=== PATIENT | female | born 1945 | race Caucasian/White ===

== ENCOUNTER 2024-04-17 05:25 | Inpatient (IN) ==
--- NOTE | 2024-03-19 12:34 | PAT Medication Instructions ---
Medication Instructions Date of Service March 19, 2024 Home Medications Medication Instructions Recorded ascorbic acid (vitamin C) 500 mg 500 mg PO BID #60 tabs 03/22/22 tablet ferrous sulfate 325 mg (65 mg 325 mg PO BID #60 tabs 03/22/22 iron) tablet multivitamin 1 tab PO DAILY #30 tabs 03/22/22 omega-3 fatty acids 1,250 mg 1,250 mg PO BID #60 caps 03/22/22 capsule CPAP Supplies #1 ea 06/30/23 CPAP Supplies #1 ea 06/30/23 diclofenac sodium 1 % topical gel 2 g topical QID PRN arm pain #100 06/30/23 grams epinephrine 0.3 mg/0.3 mL 0.3 mg (0.3 mL) IM Q10M PRN 11/15/23 injection, auto-injector (EpiPen anaphylaxis #2 ea 2-Steven) hydrochlorothiazide 12.5 mg capsule 12.5 mg PO QAM #90 caps 11/15/23 oxycodone 5 mg tablet 5 mg PO BID PRN pain #30 tabs 12/01/23 cyclobenzaprine 10 mg tablet 10 mg PO HS PRN muscle spasm #30 03/12/24 tabs ascorbic acid (vitamin C) 500 mg tablet 500 mg PO BID ferrous sulfate 325 mg (65 mg iron) tablet 325 mg PO BID multivitamin 1 tab PO DAILY omega-3 fatty acids 1,250 mg capsule 1,250 mg PO BID amoxicillin 500 mg capsule 2,000 mg PO UD PRN dental procedures acetaminophen 650 mg tablet,extended release (Tylenol Arthritis Pain) 650 mg PO TID diclofenac sodium 1 % topical gel 2 g topical QID PRN arm pain magnesium oxide 400 mg PO QPM epinephrine 0.3 mg/0.3 mL injection, auto-injector (EpiPen 2-Steven) 0.3 mg (0.3 mL) IM Q10M PRN anaphylaxis hydrochlorothiazide 12.5 mg capsule 12.5 mg PO QAM oxycodone 5 mg tablet 5 mg PO BID PRN pain propylene glycol (PF) 0.6 % eye drops (Systane Complete PF) 1 drp ophthalmic (eye) QID sodium chloride 2 % eye drops (Sanchez 128) 2 drp ophthalmic (eye) BID cyclobenzaprine 10 mg tablet 10 mg PO HS PRN muscle spasm amlodipine 10 mg tablet 10 mg PO QAM celecoxib 200 mg capsule (Celebrex) 200 mg PO QAM estradiol 0.01% (0.1 mg/gram) vaginal cream 1 g vaginal Q3D fluticasone propionate 50 mcg/actuation nasal spray,suspension 2 spray intranasal HS gabapentin 100 mg capsule 100 mg PO HS gabapentin 300 mg capsule 300 - 600 mg PO UD mirabegron 50 mg tablet,extended release 24 hr 50 mg PO QAM omeprazole 40 mg capsule,delayed release 40 mg PO QAM pramipexole 0.25 mg tablet 0.25 mg PO HS PRN RLS valsartan 160 mg tablet 160 mg PO QAM Continue as directed amoxicillin 500 mg capsule 2,000 mg PO UD PRN dental procedures (if needed) epinephrine 0.3 mg/0.3 mL injection, auto-injector (EpiPen 2-Steven) 0.3 mg (0.3 mL) IM Q10M PRN anaphylaxis (if needed) ASK your surgeon for instructions celecoxib 200 mg capsule (Celebrex) 200 mg PO QAM ASK your prescriber and surgeon estradiol 0.01% (0.1 mg/gram) vaginal cream 1 g vaginal Q3D STOP taking 2 weeks before surgery omega-3 fatty acids 1,250 mg capsule 1,250 mg PO BID STOP taking 24 hours before surgery diclofenac sodium 1 % topical gel 2 g topical QID PRN arm pain DO NOT take the morning of surgery ascorbic acid (vitamin C) 500 mg tablet 500 mg PO BID ferrous sulfate 325 mg (65 mg iron) tablet 325 mg PO BID multivitamin 1 tab PO DAILY hydrochlorothiazide 12.5 mg capsule 12.5 mg PO QAM mirabegron 50 mg tablet,extended release 24 hr 50 mg PO QAM valsartan 160 mg tablet 160 mg PO QAM Take morning of surgery With a small sip of water, OTHERWISE NOTHING TO EAT OR DRINK AFTER MIDNIGHT: acetaminophen 650 mg tablet,extended release (Tylenol Arthritis Pain) 650 mg PO TID oxycodone 5 mg tablet 5 mg PO BID PRN pain (if needed) propylene glycol (PF) 0.6 % eye drops (Systane Complete PF) 1 drp ophthalmic (eye) QID sodium chloride 2 % eye drops (Sanchez 128) 2 drp ophthalmic (eye) BID amlodipine 10 mg tablet 10 mg PO QAM gabapentin 300 mg capsule 300 - 600 mg PO UD omeprazole 40 mg capsule,delayed release 40 mg PO QAM Take evening before surgery ascorbic acid (vitamin C) 500 mg tablet 500 mg PO BID ferrous sulfate 325 mg (65 mg iron) tablet 325 mg PO BID acetaminophen 650 mg tablet,extended release (Tylenol Arthritis Pain) 650 mg PO TID magnesium oxide 400 mg PO QPM oxycodone 5 mg tablet 5 mg PO BID PRN pain (if needed) propylene glycol (PF) 0.6 % eye drops (Systane Complete PF) 1 drp ophthalmic (eye) QID sodium chloride 2 % eye drops (Sanchez 128) 2 drp ophthalmic (eye) BID cyclobenzaprine 10 mg tablet 10 mg PO HS PRN muscle spasm (if needed) fluticasone propionate 50 mcg/actuation nasal spray,suspension 2 spray intranasal HS gabapentin 100 mg capsule 100 mg PO HS gabapentin 300 mg capsule 300 - 600 mg PO UD pramipexole 0.25 mg tablet 0.25 mg PO HS PRN RLS (if needed) Other Notes If you have any questions please call us at [phone] or [phone] or [phone] or [phone]
--- NOTE | 2024-03-28 12:42 | Anesthesiology Consultation ---
Date of Service March 28, 2024 Assessment & Plan (1) Encounter for pre-operative examination: Infectious disease screening: Per assessment on 03/28/24: No known recent infectious disease contacts or current infectious disease symptoms. Chart Review Chart Review: Acceptable Risk for Surgery and Patient seen in Pre Admission Testing Teaching & Discussion Pre-Anesthesia Teaching/Discussion Notes: Instructed NPO after midnight before surgery,except medications with 15 cc of water. Medication instructions provided according to the PAT guidelines. History Surgery Operation Date: 04/17/24 07:15 Proposed Procedures p L4-L5 Lateral Lumbar Interbody Fusion with Interbody Cage and Posterior Instrumentation, L3-L4, L4-L5 Posterior Laminectomy - Ruben Platt MD Height/Weight Height: 5 ft 3.5 in Weight: 91.6 kg Allergies Allergy/AdvReac Type Severity Reaction Status Date / Time bee venom protein (honey bee) Allergy Rash, Verified 03/27/24 08:52 swelling quinine AdvReac Severe "Couldn't Verified 03/27/24 08:52 move" quinapril [From Accupril] AdvReac Intermediate Cough Verified 03/26/24 15:17 sulfamethoxazole AdvReac Mild Hives Verified 03/26/24 15:17 [From Bactrim] trimethoprim [From Bactrim] AdvReac Mild Hives Verified 03/26/24 15:17 Medications Home Medications Medication Instructions Recorded Confirmed Last Taken ascorbic acid (vitamin C) 500 mg 500 mg PO BID #60 tabs 03/22/22 03/26/24 Unknown tablet ferrous sulfate 325 mg (65 mg 325 mg PO BID #60 tabs 03/22/22 03/26/24 Unknown iron) tablet multivitamin 1 tab PO DAILY #30 tabs 03/22/22 03/26/24 Unknown omega-3 fatty acids 1,250 mg 1,250 mg PO BID #60 caps 03/22/22 03/26/24 Unknown capsule amoxicillin 500 mg capsule 2,000 mg PO UD PRN dental 07/27/22 03/26/24 Unknown procedures acetaminophen 650 mg 650 mg PO TID 04/20/23 03/26/24 Unknown tablet,extended release (Tylenol Arthritis Pain) CPAP Supplies #1 ea 06/30/23 03/26/24 Unknown CPAP Supplies #1 ea 06/30/23 03/26/24 Unknown diclofenac sodium 1 % topical gel 2 g topical QID PRN arm pain #100 06/30/23 03/26/24 Unknown grams magnesium oxide 500 mg PO QPM 08/15/23 03/28/24 Unknown epinephrine 0.3 mg/0.3 mL 0.3 mg (0.3 mL) IM Q10M PRN 11/15/23 03/26/24 Unknown injection, auto-injector (EpiPen anaphylaxis #2 ea 2-Steven) hydrochlorothiazide 12.5 mg capsule 12.5 mg PO QAM #90 caps 11/15/23 03/26/24 Unknown oxycodone 5 mg tablet 5 mg PO BID PRN pain #30 tabs 12/01/23 03/26/24 Unknown propylene glycol (PF) 0.6 % eye 1 drp ophthalmic (eye) QID 02/09/24 03/26/24 Unknown drops (Systane Complete PF) sodium chloride 2 % eye drops 2 drp ophthalmic (eye) BID 02/09/24 03/26/24 Unknown (Sanchez 128) cyclobenzaprine 10 mg tablet 10 mg PO HS PRN muscle spasm #30 03/12/24 03/26/24 Unknown tabs amlodipine 10 mg tablet 10 mg PO QAM 03/15/24 03/26/24 Unknown celecoxib 200 mg capsule (Celebrex) 200 mg PO QAM 03/15/24 03/26/24 Unknown estradiol 0.01% (0.1 mg/gram) 1 g vaginal Q3D 03/15/24 03/26/24 Unknown vaginal cream fluticasone propionate 50 2 spray intranasal HS 03/15/24 03/26/24 Unknown mcg/actuation nasal spray,suspension gabapentin 100 mg capsule 100 mg PO HS 03/15/24 03/26/24 Unknown gabapentin 300 mg capsule 300 - 600 mg PO UD 03/15/24 03/26/24 Unknown mirabegron 50 mg tablet,extended 50 mg PO QAM 03/15/24 03/26/24 Unknown release 24 hr omeprazole 40 mg capsule,delayed 40 mg PO QAM 03/15/24 03/26/24 Unknown release pramipexole 0.25 mg tablet 0.25 mg PO HS PRN RLS 03/15/24 03/26/24 Unknown valsartan 160 mg tablet 160 mg PO QAM 03/15/24 03/26/24 Unknown ClearLax 1 dose PO DAILY 10/09/24 10/09/24 Unknown Past Medical History Medical History Anemia Cardiac murmur Echo 07/2023: Mild aortic sclerosis. Mild to moderate MR. Mild [place]. Chronic knee pain Chronic left shoulder pain Disc degeneration, lumbar Fuchs' corneal dystrophy of both eyes GERD (gastroesophageal reflux disease) Hx of migraines w/aura Hypertension Lymph edema Wears compression stockings and has compression pump Obesity MICHELE (obstructive sleep apnea) CPAP Peripheral neuropathy Raynaud disease RLS (restless legs syndrome) Scoliosis of lumbar region due to degenerative disease of spine in adult Urinary incontinence Exercise / Class Metabolic Activity III < 4 Walking/Shop/Light housework Past Family History Family History Father Myocardial infarction Hypertension Malignant melanoma of right eye Brother Hypertension Pancreatic cancer Bladder cancer Emphysema, unspecified Sister Lung cancer Mother Brain tumor (benign) Brother Lung cancer Denies family history of Ovarian cancer Prostate cancer Diabetes Breast cancer Colorectal cancer Past Surgical History Surgical History History of dilatation and curettage x3 History of esophagogastroduodenoscopy (EGD) History of thyroid surgery 1967, growth/nodule removed from thyroid History of total left knee replacement Hx of bilateral cataract extraction Hx of colonoscopy Hx of tonsillectomy Hx of umbilical hernia repair S/P trigger finger release Past Anesthesia History No Hx of Anesthesia Complications and No Family Hx of Anesthesia Complications History of PONV No Hx of PONV and No Hx of Motion Sickness Social History Smoking Status: Never smoker Do You Dip or Chew Tobacco: No Hx Alcohol Use: Yes alcohol intake frequency: holidays/special occasions only Hx Substance Use: No substance use type: does not use Review of Systems Patient denies chest pain, shortness of breath, fever, chills, cough, wheezing, palpitations. Physical Exam Vital Signs BP 129/72 P 86 TEMP 98.2 SP02 99%RA RESP 18 Physical Full cervical extension range of motion. Full TMJ range of motion. TMD 3 finger breaths Mallampati Score II Dentition: intact, several caps/crowns, + inlays Lungs: clear throughout to auscultation Cardiac: regular rate and rhythm, II/ systolic murmur Spine: normal Carotid arteries: negative bruit Extremities: no LE edema Short neck Lab Results Anesthesia Preop Results Results Anesthesia Widget: WBC 5.96 K/ul (4.8-10.8) 03/28/24 Hgb 11.4 g/dl (12.0-16.0) L 03/28/24 Hct 36.3 % (37.0-47.0) L 03/28/24 Plt 251 K/uL (130-400) 03/28/24 Na 138 mmol/L (136-145) 03/28/24 K 3.9 mmol/L (3.5-5.1) 03/28/24 Cl 102 mmol/L (98-107) 03/28/24 CO2 28 mmol/L (21-32) 03/28/24 BUN 22 mg/dl (6-23) 03/28/24 Creat 0.98 mg/dl (0.6-1.2) 03/28/24 Glucose Level 103 mg/dl (70-99(Fasting)) H 03/28/24 PT 10.6 Seconds (9.0-12.0) 03/28/24 PTT 27 Seconds (21-31) 03/28/24 INR 1.0 (0.9-1.1) 03/28/24 Blood Type B Positive 03/28/24 Antibody Screen NEGATIVE 03/28/24 Testing Electrocardiogram Date: 03/28/24 NSR at 83bpm. LAFB. Minimal voltage criteria for LVH, may be normal variant. Chest X-Ray Date: 03/28/24 FINDINGS: Cardiac silhouette is upper limits of normal in size. Atherosclerosis of the aorta. No pneumothorax, pleural effusion or airspace consolidation. Degenerative changes of the shoulders and spine. IMPRESSION: No acute process. Echocardiogram Date: 08/04/23 Indication: Murmur EF 60-65%. No RWMA. No thrombus. Mild cLVH. Mild LAD. Mild aortic sclerosis. Mild to moderate MR. Mild WI.
[2024-04-17] MEDS ORDERED: LR 500ML BOLUS IV SCH (06:00)
[2024-04-17] MEDS: LR 15ML/HR IV SCH (06:22)
[2024-04-17] MEDS: GABAPENTIN 300 MG CAP PO SCH (06:23)
[2024-04-17] MEDS: LR 60ML/HR IV SCH (06:23)
[2024-04-17] MEDS: ACETAMINOPHEN 500 MG TAB PO SCH (06:25)
[2024-04-17] MEDS ORDERED: REMIFENTANIL HCL 1 MG VIAL IV ONE (06:55)
[2024-04-17] MEDS ORDERED: PROPOFOL IV EMULSION 10 MG/ML 100 ML VIAL IV ONE (06:56)
[2024-04-17] MEDS ORDERED: fentaNYL citrate PF 100 MCG/2 ML VIAL ONE (07:02)
[2024-04-17] MEDS ORDERED: LIDOCAINE 2% 2 ML VIAL/AMP(20MG/ML) INFIL ONE (07:02)
[2024-04-17] MEDS ORDERED: ROCURONIUM BROMIDE 10 MG/ML 5 ML VIAL IV ONE (07:02)
[2024-04-17] MEDS ORDERED: PROPOFOL IV EMULSION 10 MG/ML 20 ML VIAL IV ONE (07:02)
[2024-04-17] MEDS ORDERED: MIDAZOLAM HCL 1 MG/ML 2ML VIAL ONE (07:03)
[2024-04-17] MEDS ORDERED: ONDANSETRON INJ 2 MG/ML 2 ML VIAL IV PRN (07:14)
[2024-04-17] MEDS ORDERED: ATROPINE SULFATE 0.1 MG/ML 10ML SYR IV PRN (07:14)
[2024-04-17] MEDS ORDERED: ePHEDrine sulfate 50 MG/ML AMP IV PRN (07:14)
[2024-04-17] MEDS ORDERED: HYDROmorphone INJ 1 MG/ML SYRINGE IV PRN (07:14)
[2024-04-17] MEDS ORDERED: fentaNYL citrate PF 100 MCG/2 ML VIAL IV PRN (07:14)
[2024-04-17] MEDS ORDERED: SUCCINYLCHOLINE CHLORIDE 20 MG/ML 10 ML VIAL IV ONE (07:21)
[2024-04-17] MEDS ORDERED: ONDANSETRON INJ 2 MG/ML 2 ML VIAL ONE ×2 (07:21→15:19)
[2024-04-17] MEDS ORDERED: DEXAMETHASONE SOD INJ 4 MG/ML VIAL ONE (07:21)
--- NOTE | 2024-04-17 07:32 | History & Physical Bridge Note ---
Date of Service April 17, 2024 L4-5 lateral interbody fusion, cage, posterior instrumentation and fusion, decompression lumbar. History & Physical Bridge Note I have examined the patient, reviewed the History & Physical and in the interval since the performance of the History & Physical I have noted the following changes of clinical significance: no changes noted
[2024-04-17] MEDS: ceFAZolin 2000MG 2,000 MG/15 ML SYR IV SCH (08:21)
[2024-04-17] MEDS: ceFAZolin 2000MG 2,000 MG/15 ML SYR IV ONE (08:25)
[2024-04-17] MEDS ORDERED: PHENYLEPHRINE HCL 10 MG/ML VIAL ONE (09:46)
[2024-04-17] MEDS ORDERED: ePHEDrine sulfate 50 MG/5 ML SYR ONE (09:46)
[2024-04-17] MEDS: ceFAZolin 1000MG 1,000 MG/7.5 ML SYR IV ONE (12:30)
[2024-04-17] MEDS ORDERED: ceFAZolin 330 MG/ML 1 GM VIAL ONE (12:33)
[2024-04-17] MEDS: GELATIN SPONGE 12-7MM ONE (14:45)
[2024-04-17] MEDS: VANCOMYCIN HCL 1000MG/20ML VIAL ONE (14:45)
[2024-04-17] MEDS: BUPIVACAINE/EPINEPHRINE 0.5% MPF 1:200,000 30 ML VIAL ONE (15:18)
[2024-04-17] MEDS: THROMBIN 5000 UNITS KIT ONE (15:19)
[2024-04-17] MEDS ORDERED: HYDROmorphone INJ 2 MG/ML SYR/VIAL ONE (15:24)
[2024-04-17] MEDS ORDERED: ARTIFICIAL TEARS OP OINT 3.5 GM TUBE ONE (15:51)
[2024-04-17] MEDS ORDERED: LORazepam 2 MG/1 ML VIAL IV PRN (15:52)
[2024-04-17] MEDS ORDERED: FAMOTIDINE 20 MG TAB PO PRN (15:52)
[2024-04-17] MEDS ORDERED: LORazepam 0.5 MG TAB PO PRN (15:52)
[2024-04-17] MEDS ORDERED: ACETAMINOPHEN 1,000 MG/100 ML VIAL IV PRN (15:52)
[2024-04-17] MEDS ORDERED: DO NOT ADMINISTER FLU VACCINE PRN (15:52)
[2024-04-17] MEDS ORDERED: hydrOXYzine HCl 25 MG TAB PO PRN (15:52)
[2024-04-17] MEDS ORDERED: MAGNESIUM HYDROXIDE SUSP 30 ML UDC PO PRN (15:52)
[2024-04-17] MEDS ORDERED: NALOXONE HCL 0.4 MG/1 ML VIAL/CARP IV PRN (15:52)
[2024-04-17] MEDS ORDERED: diphenhydrAMINE Capsule 25 MG CAP PO PRN (15:52)
[2024-04-17] MEDS ORDERED: DO NOT ADMINISTER PNEUMOCOCCAL VACCINE PRN (15:52)
[2024-04-17] MEDS ORDERED: bisacodyL 10 MG SUPP PR PRN (15:52)
[2024-04-17] MEDS ORDERED: METOCLOPRAMIDE HCL INJ 5 MG/ML 2 ML VIAL IV PRN (15:52)
--- NOTE | 2024-04-17 15:52 | Post Operative Brief Note ---
PG Immediate Post Op with CF Date of Surgery April 17, 2024 Pre & Post Diagnosis Operation Date: 04/17/24 07:15 Pre-Op Diagnosis: Scoliosis of Lumbar Due to Degenerative Disease of Spine Post-Op Diagnosis: Scoliosis of Lumbar Due to Degenerative Disease of Spine I identified the patient and participated in the time-out.: Yes Procedure Operation Date: 04/17/24 07:15 Actual Procedures p L4-L5 Lateral Lumbar Interbody Fusion with Interbody Cage and Posterior Instrumentation/fusion, L2-3. L3-4 Posterior Laminectomy, Spinal Cord Monitoring(Not Applicable) - Ruben Platt MD Surgeon Ruben Platt MD Lumber Sorter Machine none Estimated Blood Loss 200 Findings Consistent with Post-Op Diagnosis Specimens Specimen Description: no specimen per surgeon Drains Sebastian Catheter
[2024-04-17] MEDS ORDERED: CYCLOBENZAPRINE HCL 10 MG TAB PO PRN (15:56)
[2024-04-17] MEDS ORDERED: PRAMIPEXOLE DIHYDROCHLO 0.25 MG TAB PO PRN (15:56)
--- NOTE | 2024-04-17 16:00 | Fluoroscopy Report ---
FL lumbar spine 2-3V CLINICAL HISTORY: L4-L5 FUSION. L2-L3 and L3-L4 laminectomy. COMPARISON STUDY: Lumbar spine MRI September 26, 2023. FLUOROSCOPY TIME: 2 minutes and 49 seconds. EXPOSURE DOSE: 276.13 mGy FLUOROSCOPIC IMAGES: 13 FINDINGS: Fluoroscopy was provided during lateral L4-L5 discectomy and fusion with placement of an in terbody cage. L2-L3 and L3-L4 laminectomy was also performed by report. IMPRESSION: Fluoroscopy provided during L4-L5 discectomy and fusion and L2-L3 and L3-L4 laminectomy. ACT 112: Negative or not required by law. Electronically signed by: Regino Márquez M.D. 04/17/2024 3:59 PM
--- NOTE | 2024-04-17 16:57 | Anesthesiology Progress Note ---
Date of Service April 17, 2024 Anesthesia Post Procedure Vital Signs Vital Signs: Temp Pulse Resp BP Pulse Ox O2 Del Method O2 Flow Rate 04/17/24 16:45 36.4 C L 73 16 115/62 98 Nasal Cannula 2 04/17/24 16:35 72 12 117/62 98 Nasal Cannula 2 04/17/24 16:25 74 16 115/58 L 100 Oxymask 4 04/17/24 16:15 73 14 109/59 L 100 Oxymask 4 04/17/24 16:05 70 12 108/61 100 Oxymask 6 04/17/24 15:55 36.0 C L 70 14 120/65 99 Oxymask 6 04/17/24 06:10 36.8 C 86 18 153/63 H 100 Room Air Pain Intensity Bilateral Leg: Pain Intensity: 5 Transfer of Care Handoff Completed per policy Notes Mental Status: alert / awake / arousable and participated in evaluation Patient Amnestic to Procedure: Yes Nausea / Vomiting: adequately controlled Pain: adequately controlled Airway Patency, RR, SpO2: stable & adequate BP & HR: stable & adequate Hydration State: stable & adequate Anesthetic Complications: no major complications apparent
--- NOTE | 2024-04-17 18:03 | Hospitalist Consultation ---
Date of Consultation April 17, 2024 Assessment & Plan (1) Spinal stenosis of lumbar region: S/p L4-L5 Lateral Lumbar interbody fusion with cage. L3-L4, L4-L5 posterior lamienctomy with Dr. Platt 04/17 -Pain control/dvt proh/ bowel regiment per primary team -EBL 200 AM CBC and BMP (2) Hypertension: hold HCTZ and valsartan POD #1 Continue amlodopine (3) MICHELE (obstructive sleep apnea): Has home CPAP Plan Chronic stable medical conditions: * RLS - continue Mirapex * GERD - continue PPI Thank you for allowing us to participate in the care of this patient, please reach out with any questions or concerns. Medicine will continue to follow. Supervising Physician Co-Signing Physician Notes Patient seen and examined, chart reviewed, case discussed with Sulema Walker PA-C and I agree with the assessment and plan as above except as otherwise noted Labs and images reviewed Seen at the bedside in the evening. Feels well. Pain in her legs has completely resolved, has not yet tried to walk. Has some pain at her surgical site but overall feels well. Did bring her home eyedrops which she may use while inpatient these are not on formulary. Further meds patient will either have verified through pharmacy if she prefers to use her own, or use formulary meds. No questions or acute concerns at bedside. Agree with above. History of Present Illness Attending Physician: Ruben Platt MD History of Present Illness Reina is 78F with a PMHx of colonvaginal fistula, HTN, Obestiy, GERD who presents to the hospital for elective back surgery with Dr. Platt. Allergies Allergy/AdvReac Type Severity Reaction Status Date / Time bee venom protein (honey bee) Allergy Rash, Verified 04/17/24 06:02 swelling quinine AdvReac Severe "Couldn't Verified 04/17/24 06:02 move" quinapril [From Accupril] AdvReac Intermediate Cough Verified 04/17/24 06:02 sulfamethoxazole AdvReac Mild Hives Verified 04/17/24 06:02 [From Bactrim] trimethoprim [From Bactrim] AdvReac Mild Hives Verified 04/17/24 06:02 Home Medications Medication Instructions Recorded Confirmed Type ascorbic acid (vitamin C) 500 mg 500 mg PO BID #60 tabs 03/22/22 04/17/24 Rx tablet ferrous sulfate 325 mg (65 mg 325 mg PO BID #60 tabs 03/22/22 04/17/24 Rx iron) tablet multivitamin 1 tab PO DAILY #30 tabs 03/22/22 04/17/24 Rx omega-3 fatty acids 1,250 mg 1,250 mg PO BID #60 caps 03/22/22 04/17/24 Rx capsule amoxicillin 500 mg capsule 2,000 mg PO UD PRN dental 07/27/22 04/17/24 History procedures acetaminophen 650 mg 650 mg PO TID 04/20/23 04/17/24 History tablet,extended release (Tylenol Arthritis Pain) CPAP Supplies #1 ea 06/30/23 04/11/24 Rx CPAP Supplies #1 ea 06/30/23 04/11/24 Rx diclofenac sodium 1 % topical gel 2 g topical QID PRN arm pain #100 06/30/23 04/17/24 Rx grams magnesium oxide 500 mg PO QPM 08/15/23 04/17/24 History epinephrine 0.3 mg/0.3 mL 0.3 mg (0.3 mL) IM Q10M PRN 11/15/23 04/17/24 Rx injection, auto-injector (EpiPen anaphylaxis #2 ea 2-Steven) hydrochlorothiazide 12.5 mg capsule 12.5 mg PO QAM #90 caps 11/15/23 04/17/24 Rx propylene glycol (PF) 0.6 % eye 1 drp ophthalmic (eye) QID 02/09/24 04/17/24 History drops (Systane Complete PF) sodium chloride 2 % eye drops 2 drp ophthalmic (eye) BID 02/09/24 04/17/24 History (Sanchez 128) celecoxib 200 mg capsule (Celebrex) 200 mg PO QAM 03/15/24 04/17/24 History estradiol 0.01% (0.1 mg/gram) 1 g vaginal Q3D 03/15/24 04/17/24 History vaginal cream mirabegron 50 mg tablet,extended 50 mg PO QAM 03/15/24 04/17/24 History release 24 hr (Myrbetriq) omeprazole 40 mg capsule,delayed 40 mg PO QAM 03/15/24 04/17/24 History release ClearLax 1 dose PO DAILY 03/28/24 04/17/24 History amlodipine 10 mg tablet 10 mg PO QAM #30 tabs 04/06/24 04/17/24 Rx cyclobenzaprine 10 mg tablet 10 mg PO HS PRN muscle spasm #30 04/06/24 04/17/24 Rx tabs fluticasone propionate 50 2 spray intranasal HS #16 grams 04/06/24 04/17/24 Rx mcg/actuation nasal spray,suspension oxycodone 5 mg tablet 5 mg PO BID PRN pain #30 tabs 04/06/24 04/17/24 Rx pramipexole 0.25 mg tablet 0.25 mg PO HS PRN RLS #30 tabs 04/06/24 04/17/24 Rx valsartan 160 mg tablet 160 mg PO QAM #30 tabs 04/06/24 04/17/24 Rx gabapentin 100 mg capsule 100 mg PO HS #90 caps 04/10/24 04/17/24 Rx gabapentin 300 mg capsule 300 - 600 mg (1 - 2 x 300 mg) PO 04/10/24 04/17/24 Rx UD #90 caps Patient History Medical History (Updated 04/17/24 @ 06:01 by Monse Roper, RN) Bladder infection Raynaud disease Hx of migraines w/aura Scoliosis of lumbar region due to degenerative disease of spine in adult Urinary incontinence RLS (restless legs syndrome) MICHELE (obstructive sleep apnea) CPAP Lymph edema Wears compression stockings and has compression pump Hypertension GERD (gastroesophageal reflux disease) Disc degeneration, lumbar Chronic left shoulder pain Chronic knee pain Cardiac murmur Echo 07/2023: Mild aortic sclerosis. Mild to moderate MR. Mild [place]. Anemia Obesity Fuchs' corneal dystrophy of both eyes Peripheral neuropathy Surgical History History of dilatation and curettage x3 History of esophagogastroduodenoscopy (EGD) Hx of colonoscopy Hx of bilateral cataract extraction Hx of umbilical hernia repair S/P trigger finger release Hx of tonsillectomy History of thyroid surgery 1967, growth/nodule removed from thyroid History of total left knee replacement Family History Father Myocardial infarction Hypertension Malignant melanoma of right eye Brother Hypertension Pancreatic cancer Bladder cancer Emphysema, unspecified Sister Lung cancer Mother Brain tumor (benign) Brother Lung cancer Denies family history of Ovarian cancer Prostate cancer Diabetes Breast cancer Colorectal cancer Social History Smoking Status: Never smoker Second Hand Exposure: No; Do You Dip or Chew Tobacco: No; Tobacco Cessation Education Requested by Patient: No Hx Alcohol Use: Yes Hx Substance Use: No Preferred Language: Wallisian Communication Ability: Effective Visual Impairment: Limited Hearing Ability: Normal Inoculator Required: No Beliefs That Will Affect Care: None marital status: / Current Living Situation: Alone current occupational status: retired How many Children do You have: 2 Other Information That Helps Us Care for You: No Feels Safe at Home: Yes Safety Concerns: Feels Safe At This Time Childhood Exposure to Second-Hand Smoke: No Diet: regular Diet Comment: regular caffeine: No during the past year weight has: remained stable Dental Care, Regularly: Yes Physical Activity Frequency: Daily Seatbelt Use: always Sunscreen Use: No Assistive Devices: CPAP and Glasses Review of Systems Review of Systems: All systems reviewed & are unremarkable except as noted in Subjective Physical Exam Physical Exam: General: NAD, VS as above Resp: normal respiratory effort, lungs clear to auscultation, weaned down to room air during my encounter CV: RRR, no murmur, Abd: hypoactive bowel sounds, non tender, Extremities: Moves all extremities, no edema, able to wiggle toes bilaterally Neuro: A&O x3, Skin: intact, no lesions noted Results & Data Results & Data Vital Signs (Past 12 Hours) Vital Signs Temp Pulse Resp BP Pulse Ox O2 Del Method O2 Flow Rate 04/17/24 17:35 94.1 F L 18 112/68 100 Nasal Cannula 2 04/17/24 17:25 78 12 110/62 96 Nasal Cannula 2 04/17/24 17:15 73 12 115/60 95 Nasal Cannula 2 04/17/24 17:05 76 14 108/55 L 98 Nasal Cannula 2 04/17/24 16:55 74 12 109/59 L 97 Nasal Cannula 2 04/17/24 16:45 97.5 F L 73 16 115/62 98 Nasal Cannula 2 04/17/24 16:35 72 12 117/62 98 Nasal Cannula 2 04/17/24 16:25 74 16 115/58 L 100 Oxymask 4 04/17/24 16:15 73 14 109/59 L 100 Oxymask 4 04/17/24 16:05 70 12 108/61 100 Oxymask 6 04/17/24 15:55 96.8 F L 70 14 120/65 99 Oxymask 6 04/17/24 06:10 98.2 F 86 18 153/63 H 100 Room Air PG Care Time/CCT Total # of Minutes Spent Total Time Spent with Patient: Total time spent is greater than 50% in coordination of care (as documented) at patient's floor/unit and/or counseling patient: Coding Level of Care Code 40553 IN/OBS CONSULT LVL 2,35M Diagnoses Spinal stenosis of lumbar region with neurogenic claudication M48.062 Neurogenic claudication status: with neurogenic claudication Hypertension I10 MICHELE (obstructive sleep apnea) G47.33 (1) Spinal stenosis of lumbar region Neurogenic claudication status: with neurogenic claudication Qualified Code(s): M48.062 - Spinal stenosis, lumbar region with neurogenic claudication
[2024-04-17] MEDS: MAGNESIUM OXIDE 400 MG TAB PO SCH (21:20)
[2024-04-17] MEDS: ceFAZolin 1000MG 1,000 MG/7.5 ML SYR IV SCH (21:20)
[2024-04-17] MEDS: DOCUSATE SODIUM/SENNA 50/8.6MG TAB PO SCH (21:20)
[2024-04-18] MEDS: oxyCODONE/ACETAMINOPHEN 5mg/325mg TAB PO PRN (02:06)
[2024-04-18] MEDS: POLYETHYLENE (MIRALAX) 17 GM PACK PO SCH (05:47)
[2024-04-18 08:54] LABS: Hematocrit (blood only) 29.9 % (37.0-47.0); Hemoglobin 9.6 g/dl (12.0-16.0); Mean Corpuscular Hemoglobin 27.8 pg (25.0-34.0); Mean Corpuscular Hgb Conc 32.1 g/dL (32.0-36.0); Mean Corpuscular Volume 86.7 fL (80.0-100.0); Mean Platelet Volume 10.2 fL (9.4-12.4); Platelet Count 331 K/uL (130-400); RDW Coefficient of Variation 15.5 % (11.5-14.5); RDW Standard Deviation 48.3 fL (36.4-46.3); Red Blood Count 3.45 M/uL (4.20-5.40); White Blood Count 14.23 K/ul (4.8-10.8)
[2024-04-18 09:00] LABS: BUN Creatinine Ratio 22.3 (10-20); Calcium 9.5 mg/dl (8.6-10.3); Potassium 3.9 mmol/L (3.5-5.1)
[2024-04-18] MEDS ORDERED: hydroCHLOROthiazide 25 MG TAB PO SCH (09:00)
[2024-04-18] MEDS: VIBEGRON 75 MG TAB PO SCH (09:05)
[2024-04-18] MEDS: PANTOprazole 40 MG TAB PO SCH (09:05)
[2024-04-18] MEDS: amLODIPine BESYLATE 5 MG TAB PO SCH (09:05)
--- NOTE | 2024-04-18 09:20 | Hospitalist Progress Note ---
Date of Service April 18, 2024 Assessment & Plan (1) Spinal stenosis of lumbar region: Plan: S/p L4-L5 Lateral Lumbar interbody fusion with cage. L3-L4, L4-L5 posterior lamienctomy with Dr. Platt 04/17. EBL 200cc Pain control/dvt proh/ bowel regiment per primary team 04/18 WBC elevation likely 2nd to surgery/dexamethasone given with such. Slight temp 37.8C this morning but ?atelectasis. Incentive spirometry encouraged. Hgb 11.4-->9.6, acute blood loss anemia from surgery (EBL 200cc) as well as aspect of dilution from IVF suspected Of note, did have + urine cx on pre-op testing for ecoli and was given rx for macrobid at that time but did require straight cath x 1 this morning and will plan to repeat UA/cx but denies symptoms burning/frequency at this time. Continue myrbetriq/hospital equivalent Passing gas but no BM, monitor for retention. No abd pain reported Holding off HCTZ/valsartan for now and likely able to resume in AM Monitor labs/exam on repeat. PT/OT consults and patient reporting [facility] planned for rehab at discharge (2) Hypertension: Plan: Chronic/stable, BP 113/65 Continues on amlodipine Home HCTZ/valsartan on hold for now, BUN/Cr stable however will monitor to resume later today if needed but suspect likely hold off until tomorrow (04/19) unless BPs elevated this afternoon Monitor (3) MICHELE (obstructive sleep apnea): Plan: Has home CPAP Plan Chronic stable medical conditions: * RLS - continue Mirapex * GERD - continue PPI Thank you for allowing us to participate in the care of Mrs Cota. Hospitalist service will follow along in AM. Please call with any questions/concerns. Admission and Anticipated Discharge Date Admission Date: April 17, 2024 Supervising Physician Co-Signing Physician Notes The patient was not seen by me. The chart was reviewed. Case discussed with CHICHO Clark. Agree with assessment and plan Subjective Eval this morning, sitting up in chair, daughter in room. Painful last evening, improved control today and got 2 Percocet this morning. +flatus but no bowel movement. Reports was waiting to urinate and not much overnight and they had to cath this morning. She does have issues w/ incontinence/retention at baseline, typically gets up ~3x/night to urinate and gets about 2-3 UTIs a year. Did complete course Macrobid prior to surgery. Discussed monitoring urine/symptoms and moves. Planning for [facility] at discharge, to speak with Phillip from [facility] (entering room at end of encounter). Physical Exam 2 Physical Exam: General: 78 yo female sitting up in the chair, NAD, daughter in room HEENT: head atraumatic, normocephalic, mm slightly dry, trachea midline Resp: even/unlabored, no w/c/r, on room air CV: RRR, faint systolic murmur, no rub/gallop, no pitting edema GI: +BS, soft/NT, slight distension : no price MSK/Neuro: dressing c/d/i, some shadowing, scant ANIYA output, NVI, pulses present and calves nontender, strength equal bilaterally Psych: AOx3, cooperative with exam CPAP in room Results & Data Results & Data Vital Signs (Past 12 Hours) Vital Signs Temp Pulse Resp BP Pulse Ox O2 Del Method 04/18/24 07:06 37.8 C H 98 H 18 113/65 96 Room Air 04/18/24 03:36 37.0 C 90 18 127/71 96 CPAP 04/17/24 23:28 37.1 C 85 18 116/69 96 CPAP Laboratory Results 04/18/24 08:10 04/18/24 08:10 Diagnostic Findings Lumbar Spine X-Ray 04/17/24 07:00 FL lumbar spine 2-3V CLINICAL HISTORY: L4-L5 FUSION. L2-L3 and L3-L4 laminectomy. COMPARISON STUDY: Lumbar spine MRI September 26, 2023. FLUOROSCOPY TIME: 2 minutes and 49 seconds. EXPOSURE DOSE: 276.13 mGy FLUOROSCOPIC IMAGES: 13 FINDINGS: Fluoroscopy was provided during lateral L4-L5 discectomy and fusion with placement of an interbody cage. L2-L3 and L3-L4 laminectomy was also performed by report. IMPRESSION: Fluoroscopy provided during L4-L5 discectomy and fusion and L2-L3 and L3-L4 laminectomy. ACT 112: Negative or not required by law. Electronically signed by: Regino Márquez M.D. 04/17/2024 3:59 PM PG Care Time/CCT Total # of Minutes Spent Total Time Spent with Patient: Total time spent is greater than 50% in coordination of care (as documented) at patient's floor/unit and/or counseling patient: Coding Level of Care Code 28312 SUB INP/OBS CARE MIN Diagnoses Spinal stenosis of lumbar region with neurogenic claudication M48.062 Neurogenic claudication status: with neurogenic claudication Hypertension I10 MIHCELE (obstructive sleep apnea) G47.33 (1) Spinal stenosis of lumbar region Neurogenic claudication status: with neurogenic claudication Qualified Code(s): M48.062 - Spinal stenosis, lumbar region with neurogenic claudication
[2024-04-18] MEDS: HYDROmorphone INJ 0.5 MG/0.5 ML SYR IV PRN (11:47)
--- NOTE | 2024-04-18 12:56 | Operative Report ---
PG Post Operative Report Pre & Post Diagnosis Operation Date: 04/17/24 07:15 Pre-Op Diagnosis: Scoliosis of Lumbar Due to Degenerative Disease of Spine Post-Op Diagnosis: Scoliosis of Lumbar Due to Degenerative Disease of Spine I identified the patient and participated in the time-out.: Yes Procedure Operation Date: 04/17/24 07:15 Actual Procedures p L4-L5 Lateral Lumbar Interbody Fusion with Interbody Cage and Posterior Instrumentation, L3-L4, L4-L5 Posterior Laminectomy, Spinal Cord Monitoring(Not Applicable) - Ruben Platt MD Surgeon Ruben Platt MD Pharmacist Aide none Estimated Blood Loss 200 Findings Consistent with Post-Op Diagnosis Specimens none Description of Procedure 1. L4-5 left lateral interbody arthrodesis. (69168) 2. L4-5 lateral interbody cage, NuVasive cohere XL 10 x 18 x 55 mm lordotic. (81145) 3. L4-5 posterior arthrodesis. (85610) 4. L4-5 posterior nonsegmental instrumentation, NuVasive reline. (07258) 5. L3-4, L2-3 posterior lumbar decompression. (55236, 87961) 6. Autograft from same location/incision for fusion purposes. (22828) Patient was taken the operating room and after adequate esthesia she was carefully positioned right lateral decubitus position left side up, and secured to the table in standard fashion, fluoroscopy was used to align the positioning and then secured the table in routine fashion for a lateral approach to the L4-5 level. Once completed, prep and drape was performed, began the procedure with bringing in fluoroscopy and rechecking for the location of the incision just over the left iliac crest. Transverse incision was made over the left iliac crest and advanced down to the subcutaneous tissues and into the retroperitoneal area in routine fashion, where it advanced the abdominal contents and palpated this and advanced this anteriorly, then inserted the initial dilator from the NuVasive set onto the lateral aspect of the L4-5 disc space. I then made repositionings of this and then selected a location approximately the 50% point, inserted the guidewire followed by the additional dilators and found this to be an appropriate axis point. Access apparatus was then inserted without issue, minor adjustments were made, and this was secured with a paddy. I then began the procedure with a annulotomy and the left side followed by a variety of inst ruments including Brownlee elevators adiel and mobilized the disc space improving the overall alignment with elevating the right interspace region which was collapsed causing scoliosis. This process continued along with removal of the disc material and cartilage from the endplates, I then moved onto trials and selected the cage as stated. Fusion materials were then placed into the space and also within the cage, I then tapped this into position with excellent position and potential correction of the scoliosis. Final images were obtained, I then removed the access apparatus, final inspection revealed no issues and vancomycin was placed. Operative site was then closed using 0 and 2-0 Vicryl sutures followed by karson for the skin. The patient was then repositioned prone on a Giovanny frame carefully checked for position followed by then bringing in fluoroscopy where I marked for the location of the incision. The prep and drape was performed, the beginning of procedure was a midline incision carried down through the subcutaneous tissues down onto the spinous processes exposing the areas to be involved with the remainder of the procedure from L2 down to L5. Once this area was exposed, I brought in fluoroscopy starting with the L5 pedicle screws, these were advanced using fluoroscopic control and monitoring. This was then repeated at the L4 level, and the position of the hardware was inspected fluoroscopically and found to be in proper position, all readings were greater than 20. I then applied about compression on the left side and slight distraction on the right improving the overall alignment of the segment. Setscrews were torqued down properly. I moved to the L3-4 and L2-3 interspaces, and then moved ahead with the decompression. This included at both levels rem oval of the spinous process inferiorly, exposure of the interlaminar region. The thickened ligamentum flavum was thin, I then used a high-speed bur to perform inferior hemilaminectomies bilaterally followed by superior head of the laminectomies and along the medial border of the facets bilaterally. Thickened ligamentum flavum was then completely removed using combination curettes and Kerrison punches undercutting the facets and completing decompression first to the L3-4 level and then also at the L2-3 level without issue. Final inspection revealed adequate decompression in both regions with the laminectomies, no issues were noted, the operative site was thoroughly irrigated with normal saline solution. The bone fragments along with the bone dust from the high- speed bur was collected, this was packed into the fusion areas posteriorly along the facets and lamina region at L4-5 along with the remaining fusion materials. Vancomycin powder was placed followed by closure reattaching the supraspinous ligament were available, an additional layer of 0 Vicryl sutures and 2-0 Vicryl sutures for the skin followed by karson. Sterile dressing was applied, the patient tolerated procedure well was taken recovery room satisfactory condition. I attest to the content of the Intraoperative Record and any orders documented therein. Any exceptions are noted below.
--- NOTE | 2024-04-18 13:02 | Orthopedic Progress Note ---
Date of Service April 18, 2024 Subjective Patient seen and examined, she notes that she has some slight weakness in the left hip flexion but otherwise some limited incision symptomatology. Exam reveals the patient to have activation of the left hip flexors and at least grade 4 strength, but weaker than that compared to the right side. Impression/plan: Postop day 1 from surgical procedure including lumbar decompression and arthrodesis at the L4-5 level. Recommend mobilization with physical therapy, will work on discharge planning to a rehab facility. Review of Systems All systems reviewed & are unremarkable except as noted in HPI & below. Physical Exam . Results & Data Results & Data Laboratory Results . Diagnostic Findings . PG Care Time/CCT Total # of Minutes Spent Total Time Spent with Patient: Total time spent is greater than 50% in coordination of care (as documented) at patient's floor/unit and/or counseling patient: Coding Level of Care Code 45776 Post Operative Follow-Up
[2024-04-18] MEDS: ONDANSETRON 4 MG OD TAB PO PRN (16:58)
[2024-04-18 17:49] LABS: Appearance Urine Clear (Clear); Bacteria Urine Automated None Seen (None Seen); Bilirubin Urine Negative (Negative); Blood Urine Negative (Negative); Cast Urine Automated >20 /lpf (0-2); Color Urine Yellow; Epithelial Cell Urine Auto 0-2 /hpf (0-2); Glucose Urine UA Negative (Negative); Ketones Urine Trace (Negative); Leukocyte Esterase Urine Negative (Negative); Nitrite Urine Negative (Negative); Protein Urine Trace (Negative); RBC Urine Automated 0-2 /hpf (0-2); Specific Gravity Urine 1.027 (1.000-1.030); Urobilinogen Urine Negative (Negative); WBC Urine Automated 0-5 /hpf (0-5)
[2024-04-18] MEDS: ALUMINUM/MAGNESIUM SUSP 30 ML UDC PO PRN (18:02)
[2024-04-19 06:53] LABS: Basophils # (auto) 0.02 K/uL (0.00-0.20); Basophils % (auto) 0.2 %; Hematocrit (blood only) 24.9 % (37.0-47.0); Hemoglobin 8.3 g/dl (12.0-16.0); Immature Granulocytes # (auto) 0.05 K/uL (0.01-0.20); Immature Granulocytes % (auto) 0.5 %; Lymphocytes # (auto) 1.19 K/uL (1.20-3.40); Lymphocytes % (auto) 12.2 %; Mean Corpuscular Hemoglobin 28.3 pg (25.0-34.0); Mean Corpuscular Hgb Conc 33.3 g/dL (32.0-36.0); Mean Platelet Volume 10.1 fL (9.4-12.4); Monocytes # (auto) 0.87 K/uL (0.11-0.59); Monocytes % (auto) 8.9 %; Neutrophils # (auto) 7.61 K/uL (1.40-6.50); Neutrophils % (auto) 78.2 %; Platelet Count 235 K/uL (130-400); RDW Coefficient of Variation 15.5 % (11.5-14.5); RDW Standard Deviation 47.7 fL (36.4-46.3); Red Blood Count 2.93 M/uL (4.20-5.40); White Blood Count 9.74 K/ul (4.8-10.8)
[2024-04-19 07:21] LABS: BUN Creatinine Ratio 29.4 (10-20); Calcium 8.9 mg/dl (8.6-10.3); Creatinine Clr Calc Pharmacy 48.5 ml/min; Magnesium 2.3 mg/dl (1.7-2.4); Potassium 3.6 mmol/L (3.5-5.1)
[2024-04-19] MEDS: ONDANSETRON INJ 2 MG/ML 2 ML VIAL IV PRN (07:51)
--- NOTE | 2024-04-19 08:49 | Orthopedic Progress Note ---
Date of Service April 19, 2024 Assessment & Plan (1) Spinal stenosis of lumbar region: Subjective Patient seen and examined, she notes that she still needs catheterization every shift, and has mobilized to a chair but still having some weakness in the lower extremities more so on the left side. Exam reveals her to have relatively appropriate strength for all groups tested in right leg, on the left though she has some hip flexion and knee extension weakness in the grade 4 out of 5 but intact 5/5 strength for ankle plantar dorsiflexion. Impression: Postoperative day 2 from lateral cage placement on the left and fusion and decompression lumbar spine. Plan: Talked with patient and daughter, recommending continuing with physical therapy, they are working on placement for rehab, emphasized that I think the lower extremity symptoms will improve with time. Review of Systems All systems reviewed & are unremarkable except as noted in HPI & below. Physical Exam . Results & Data Results & Data Laboratory Results . Diagnostic Findings . PG Care Time/CCT Total # of Minutes Spent Total Time Spent with Patient: Total time spent is greater than 50% in coordination of care (as documented) at patient's floor/unit and/or counseling patient: Coding Level of Care Code 15901 Post Operative Follow-Up Diagnoses Spinal stenosis of lumbar region with neurogenic claudication M48.062 Neurogenic claudication status: with neurogenic claudication (1) Spinal stenosis of lumbar region Neurogenic claudication status: with neurogenic claudication Qualified Code(s): M48.062 - Spinal stenosis, lumbar region with neurogenic claudication
--- NOTE | 2024-04-19 08:49 | Hospitalist Progress Note ---
Date of Service April 19, 2024 Assessment & Plan (1) Spinal stenosis of lumbar region: Plan: S/p L4-L5 Lateral Lumbar interbody fusion with cage. L3-L4, L4-L5 posterior laminectomy with Dr. Platt 04/17. EBL 200cc Pain control/dvt proh/ bowel regiment per primary team 04/18 WBC elevation likely 2nd to surgery/dexamethasone given with such. Slight temp 37.8C this morning but ?atelectasis. Incentive spirometry encouraged. Hgb 11.4-->9.6, acute blood loss anemia from surgery (EBL 200cc) as well as aspect of dilution from IVF suspected Of note, did have + urine cx on pre-op testing for ecoli and was given rx for macrobid at that time but did require straight cath x 1 AM 04/18 and will plan to repeat UA/cx but denies symptoms burning/frequency at this time. Continue myrbetriq/hospital equivalent Passing gas but no BM, monitor for retention. No abd pain reported Holding off HCTZ/valsartan for now and likely able to resume in AM Monitor labs/exam on repeat. PT/OT consults and patient reporting [facility] planned for rehab at discharge 04/19 WBC normalized but hgb to 8.3. No drain in place. Has been afebrile except slight bump in temp 37.8C AM 04/18 and incentive spirometry encouraged UA did not appear overly infected but is requiring straight cath, Did have episode of nausea/vomiting last evening, ?related to constipation checking KUB to eval ileus as has been getting oxycodone/Dilaudid for pain control Phenergan x 1 for nausea this morning KUB w/ concerns for ILEUS +BS R side but SLOW on the left, enema to be provided by nursing. continue bowel regimen/limit opiates as able. Gabapentin resumed as taking at home. Monitor for bowels, decreased PO inake/appetite and push fluids as tolerated but can continue diet as tolerated/back to liquids if needed and will repeat KUB for AM Discussed w/ ariela Rodarte for dose of Dexamethasone -possible some irritation to nerves on the right from sugery, did have some relocation of psoas muscle during surgery on the left and suspected weakness on that side not surprising per primary service and hopeful to improve with time. Consider CTAP in AM if further drop in hgb Price to be placed if ongoing issues w/ retention, will restart macrobid per discussion w/ Dr Platt and also repeat UA/cx w/ price if occurs Monitor lab/exam in AM, [facility] planned when medically stable (2) Hypertension: Plan: Chronic/stable Continues on amlodipine but HCTZ/valsartan on hold for now. Will plan to resume valsartan for AM but hold off HCTZ for now to prevent dehydration Monitor (3) MICHELE (obstructive sleep apnea): Plan: CPAP HS (4) Ileus: Plan: suspect cause for her nausea/vomiting (UTI not excluded, perioperative abx given, macrobid resumed per discussion w/ primary service) bowel regimen, enema x 1 and will continue to monitor limit narcotics as able, antiemetics as needed. no further vomiting at this time but will monitor KUB in AM/NGT if worsens/needed Plan Chronic stable medical conditions: * RLS - continue Mirapex * GERD - continue PPI Thank you for allowing us to participate in the care of Mrs Cota. Hospitalist service will follow along in AM. Please call with any questions/concerns. Admission and Anticipated Discharge Date Admission Date: April 17, 2024 Supervising Physician Co-Signing Physician Notes The patient was not seen by me. The chart was reviewed. Case discussed with CHICHO Clark. Agree with assessment and plan Subjective Evaluated this morning. Had episode of emesis yesterday afternoon, some nausea this morning. Decreased flatus but no overt abdominal pain. Discussed KUB w/ ileus, agreeable to suppository. Gabapentin resumed per primary service. Has been using IV/PO opiates and suspect contributing to ileus. Straight cath overnight, ongoing retention and price to be placed if again retaining but ? from ileus vs infection. UA did not appear with bacteria but did get abx w/ surgery and resumed macrobid. Hgb low, denies SOB/CP at this time. Monitoring for hematoma from surgery. Questions/concerns addressed at this time, daughter in room. Planning for rehab when stable. Physical Exam 2 Physical Exam: General: 78 yo female sitting up bed, nauseated but improved since medications, fatigued appearing/general pallor but NAD HEENT: head atraumatic, normocephalic, mm slightly dry, trachea midline Resp: even/unlabored, faint bibasilar crackles but no w/c/r, on room air CV: RRR, faint systolic murmur, no rub/gallop, no pitting edema GI: +BS on the right, slightly hypoactive on the left, soft but generalized cramping : no price (to be palced if ongoing retention issues) MSK/Neuro: dressing c/d/i, some shadowing, NVI, pulses present and calves nontender,strength decreased w/ dorsiflexion/plantar flexion on the left compared to the right Psych: AOx3, cooperative with exam CPAP in room Results & Data Results & Data Vital Signs (Past 12 Hours) Vital Signs Temp Pulse Resp BP Pulse Ox O2 Del Method 04/19/24 07:17 37.2 C 88 19 126/72 90 Room Air Laboratory Results 04/19/24 06:32 04/19/24 06:32 PG Care Time/CCT Total # of Minutes Spent Total Time Spent with Patient: Total time spent is greater than 50% in coordination of care (as documented) at patient's floor/unit and/or counseling patient: Coding Level of Care Code 28790 SUB INP/OBS CARE 3/50MIN Diagnoses Spinal stenosis of lumbar region with neurogenic claudication M48.062 Neurogenic claudication status: with neurogenic claudication Hypertension I10 MICHELE (obstructive sleep apnea) G47.33 Ileus K56.7 (1) Spinal stenosis of lumbar region Neurogenic claudication status: with neurogenic claudication Qualified Code(s): M48.062 - Spinal stenosis, lumbar region with neurogenic claudication
[2024-04-19] MEDS: PROMETHAZINE 12.5 MG/50.5 ML BAG IV PRN (09:51)
--- NOTE | 2024-04-19 09:58 | XRay Report ---
KUB CLINICAL HISTORY: Nausea and vomiting. Recent surgery. FINDINGS: 3 AP, portable, supine abdominal radiographs are correlated with lumbar spine x-rays dated 10/03/2023. Skin clips project over the midabdomen and left flank, and fusion hardware in the lumbar s pine is new from previous. There is gaseous distention of the small bowel loops and colon favoring il eus. No intraperitoneal free air is suggested on the supine images. There are no abnormal abdominal c alcifications. The skeletal structures are osteopenic and appear intact. There is lumbosacral spondyl osis and mild scoliosis. IMPRESSION: There is gaseous distention of the small bowel loops and colon with evidence of previous surgery. These findings favor ileus and clinical correlation will be required. Electronically signed by: David Gardner M.D. 04/19/2024 9:56 AM
--- NOTE | 2024-04-19 10:59 | XRay Report ---
XR chest 1V portable CLINICAL HISTORY: Nausea and vomiting. COMPARISON STUDY: Chest radiograph March 28, 2024. FINDINGS: Low lung volumes are noted. There is mild elevation the right hemidiaphragm. No pneumothora x or pleural effusion is present. There is no consolidation to suggest pneumonia. Cardiac size is at upper limits of normal. IMPRESSION: No acute cardiopulmonary findings. ACT 112: Negative or not required by law. Electronically signed by: Regino Márquez M.D. 04/19/2024 10:57 AM
[2024-04-19] MEDS: SOD PHOSPHATE/SOD BIPHOSPHATE ENEMA 132 ML BTL PR PRN (12:03)
[2024-04-19] MEDS ORDERED: DEXAMETHASONE SOD INJ 4 MG/ML VIAL IV STA (12:31)
[2024-04-19] MEDS: dexAMETHasone 4 MG in SYRINGE 0 ML IV STA (13:21)
[2024-04-19] MEDS: GABAPENTIN 300 MG CAP PO SCH (13:43)
[2024-04-19] MEDS: NITROFURANTOIN MONOHYDRATE 100 MG CAP PO SCH (13:43)
[2024-04-19] MEDS: ACETAMINOPHEN 500 MG TAB PO PRN (15:24)
[2024-04-19] MEDS: SODIUM CHLORIDE 0.9% 1,000 ML IV SCH (16:33)
[2024-04-19 17:36] LABS: Influenza A virus by PCR Negative (Neg); Influenza B virus by PCR Negative (Neg); RSV by PCR Negative (Neg); SARS CoV2 RNA(COVID-19) Ceph NEGATIVE (Negative)
[2024-04-19 17:58] LABS: Appearance Urine Clear (Clear); Bacteria Urine Automated None Seen (None Seen); Bilirubin Urine Negative (Negative); Blood Urine 3+ (Negative); Color Urine Yellow; Epithelial Cell Urine Auto 0-2 /hpf (0-2); Glucose Urine UA Negative (Negative); Ketones Urine Negative (Negative); Leukocyte Esterase Urine Trace (Negative); Nitrite Urine Negative (Negative); Protein Urine 2+ (Negative); RBC Urine Automated >20 /hpf (0-2); Specific Gravity Urine 1.017 (1.000-1.030); Urobilinogen Urine Negative (Negative); pH Urine 5.5 (4.5-7.5)
[2024-04-19] MEDS: IBUPROFEN 600 MG TAB PO STA (20:41)
[2024-04-20 06:23] LABS: Basophils # (auto) 0.01 K/uL (0.00-0.20); Basophils % (auto) 0.1 %; Hematocrit (blood only) 24.8 % (37.0-47.0); Hemoglobin 7.8 g/dl (12.0-16.0); Immature Granulocytes # (auto) 0.02 K/uL (0.01-0.20); Immature Granulocytes % (auto) 0.2 %; Lymphocytes # (auto) 1.08 K/uL (1.20-3.40); Lymphocytes % (auto) 12.8 %; Mean Corpuscular Hemoglobin 27.3 pg (25.0-34.0); Mean Corpuscular Hgb Conc 31.5 g/dL (32.0-36.0); Mean Corpuscular Volume 86.7 fL (80.0-100.0); Mean Platelet Volume 9.7 fL (9.4-12.4); Monocytes # (auto) 0.81 K/uL (0.11-0.59); Monocytes % (auto) 9.6 %; Neutrophils # (auto) 6.49 K/uL (1.40-6.50); Neutrophils % (auto) 77.3 %; Platelet Count 216 K/uL (130-400); RDW Standard Deviation 47.8 fL (36.4-46.3); Red Blood Count 2.86 M/uL (4.20-5.40); White Blood Count 8.41 K/ul (4.8-10.8)
[2024-04-20 06:41] LABS: Polychromasia 1+
[2024-04-20 06:54] LABS: Albumin Globulin Ratio 1.4 (0.9-2); Albumin Level 3.3 gm/dl (3.4-5.0); BUN Creatinine Ratio 21.7 (10-20); Bilirubin,Total 0.4 mg/dl (0.2-1.0); Calcium 8.7 mg/dl (8.6-10.3); Creatinine Clr Calc Pharmacy 59.6 ml/min; Globulin 2.3 gm/dl (2.5-4.0); Magnesium 2.3 mg/dl (1.7-2.4); Potassium 3.2 mmol/L (3.5-5.1); Total Protein 5.6 gm/dl (6.0-8.3)
--- NOTE | 2024-04-20 08:12 | Hospitalist Progress Note ---
Date of Service April 20, 2024 Assessment & Plan (1) Spinal stenosis of lumbar region: Plan: S/p L4-L5 Lateral Lumbar interbody fusion with cage. L3-L4, L4-L5 posterior laminectomy with Dr. Platt 04/17. EBL 200cc Pain control/dvt proh/ bowel regiment per primary team 04/18 WBC elevation likely 2nd to surgery/dexamethasone given with such. Slight temp 37.8C this morning but ?atelectasis. Incentive spirometry encouraged. Hgb 11.4-->9.6, acute blood loss anemia from surgery (EBL 200cc) as well as aspect of dilution from IVF suspected Of note, did have + urine cx on pre-op testing for ecoli and was given rx for macrobid at that time but did require straight cath x 1 AM 04/18 and will plan to repeat UA/cx but denies symptoms burning/frequency at this time. Continued Myrbetriq/hospital equivalent Passing gas but no BM, monitor for retention. No abd pain reported HCTZ/valsartan for now, PT/OT consults pending and [facility] planned eventually when medically clear 04/19 WBC normalized but hgb to 8.3. No drain in place. Had been afebrile except slight bump in temp 37.8C AM 04/18 and incentive spirometry encouraged and UA did not appear overly infected but ?if from perioperative abx and restarted macrobid given prior cx. KUB obtained given n/v, concerns for ileus. KUB c/w ileus and diet backed to full liquids, enema x 1 provided and 1L NSS provided. Price placed for ongoing urinary retention issues, urine culture sent/pending Discussed w/ ariela Rodarte for dose of Dexamethasone 4mg IV x 1 -possible some irritation to nerves on the right from sugery, did have some relocation of psoas muscle during surgery on the left and suspected weakness on that side not surprising per primary service and hopeful to improve with time. 04/20 WBC wnl, temp 38.5C last evening. Not hypoxic/no SOB, CXR negative in AM for any acute findings and no further n/v reported. KUB w/ ongoing concerns for ileus but improvement in +BS on exam and liquid bowel movement following imaging. Continue full liquid diet for now, advance as tolerated if not having issues/continued bowel movements. Continue bowel regimen, enema/suppository if needed Price removed by nursing this morning, will need to ensure able to void but if ongoing issues with retention will place/continue at [facility] and plan for voiding trial. Urine cx pending and continues on Macrobid BID. -Placing myrbetriq on hold, retention possibly leading to continued UTIs Iron studies w/ LOW iron/trans%sat/ferritin --> Venofer IV. Holding home iron BID given constipation/ileus concerns. Did have some UGIB in the past and will plan to increase her protonix to BID. Plan to repeat Venofer IV in AM No significant hematoma/bleeding on exam and ?acute on chronic with blood loss from surgery. AVOID NSAIDs (given ibuprofen overnight by resident team for fever) Monitor hgb count in AM, per primary service wanting to avoid PRBC for now and renal function stable. Will monitor if drop in AM to consider transfusion but did note given 1L IVF overnight and suspect some drop from dilution. [facility] when bed available, per CM not available today. (2) Ileus: Plan: suspected cause for her nausea/vomiting 04/18 (UTI not excluded, perioperative abx given, macrobid resumed per discussion w/ primary service as above) 1L IVF provided overnight, bowel regimen/enema and KUB w/ continued concerns today but had BM following KUB and improvement in +BS on exam. Continue full liquid diet for now/advance as tolerated if not having any pain and continued flatus/bowel movements Monitor (3) Urinary retention: Plan: ongoing issues, frequent UTIs at baseline. Will place gemtessa on hold for now as could be contributing to retention Price placed w/ surgery initially but removed in PACU prior to arrival to [facility]. Ongoing need for st cath/urinary retention and price placed 04/19 Urine cx pending and remains on macrobid as above for now and initially planned for voiding trial once moving bowels but was removed this morning and will need to monitor. If any ongoing issues/need for repeat catherization would plan to place price/continue voiding trial vs ref urology outpatient (4) Hypertension: Plan: Chronic/stable and improved Continues on amlodipine but HCTZ/valsartan on hold for now and will plan to resume valsartan. HCTZ on hold for now to prevent dehydration given ileus as above but if moving bowels/no issues overnight can resume in AM. 40meq KCL provided for K 3.2 this morning. mag level wnl Monitor (5) MICHELE (obstructive sleep apnea): Plan: CPAP HS Plan Chronic stable medical conditions: * RLS - continue Mirapex * GERD - continue PPI but INCREASED TO BID ABOVE. Avoid NSAIDs given hx UGIB Family updated in room 04/20 Thank you for allowing us to participate in the care of Mrs Cota. Hospitalist service will follow along in AM and hopefully possible dc to [facility] pending status/labs and bed availability. CM following. Please call with any questions/concerns. Admission and Anticipated Discharge Date Admission Date: April 17, 2024 Supervising Physician Co-Signing Physician Notes The patient was not seen by me. The chart was reviewed. Case discussed with CHICHO Clark. Agree with assessment and plan Subjective Evaluated this morning, family in room. Also seen by other provider who noting myrbetriq could be contributing to retention, agreed. Price had been removed this morning about 30 minutes ago, not voiding yet but not having any abd pain presently or nausea. KUB w/ continued ileus this morning but improvement in BS and reported having liquid bowel movement following the KUB and will continue to monitor. Notable on iron BID, issues w/ upper bleeding in [place] from Advil and discussed avoiding PO currently to prevent constipation but will plan for Venofer. If moving bowels, hgb improved with venofer (planning repeat dose here vs at [facility]) could consider dc on Macrobid to [facility] this evening with CM otherwise will montior status in AM. Case discussed with Dr Platt. Patient with ongoing discomfort to right lateral knee, heat to be ordered. Questions/concerns addressed at this time. Physical Exam 2 Physical Exam: General: 78 yo female sitting up in chair, family at bedside, appears improved, NAD HEENT: head atraumatic, normocephalic, mm improved, trachea midline Resp: even/unlabored, faint bibasilar crackles but no w/c/r, on room air CV: RRR, + systolic murmur, no rub/gallop, trace b/l edema, pulses present GI: improvement in BS throughout, soft/no overt tenderness/guarding/rebound : price removed this morning MSK/Neuro: dressing c/d/i, NVI but slight strength decreased w/ dorsiflexion/plantar flexion on the left compared to the right, R lateral knee/IT band discomfort (RN to provide heating pad) Psych: AOx3, cooperative with exam CPAP in room Results & Data Results & Data Vital Signs (Past 12 Hours) Vital Signs Temp Pulse Resp BP Pulse Ox O2 Del Method 04/20/24 07:51 36.9 C 84 18 126/68 96 CPAP 04/19/24 22:06 37.2 C Laboratory Results 04/20/24 06:03 04/20/24 06:03 Diagnostic Findings KUB X-Ray 04/20/24 07:00 KUB CLINICAL HISTORY: f/u ileus COMPARISON STUDY: KUB April 19, 2024. FINDINGS: Postoperative findings within the spine are incidentally noted. There are skin karson. Colorectal gaseous distention persists. The amount of stool is within normal limits. Although sensitivity is diminished on supine exam, there is no evidence for free air. IMPRESSION: Persistent colorectal gaseous distention. Given recent surgery, this favors an ileus. Continued imaging follow-up is recommended. ACT 112: Negative or not required by law. Electronically signed by: Regino Márquez M.D. 04/20/2024 9:25 AM PG Care Time/CCT Total # of Minutes Spent Total Time Spent with Patient: Total time spent is greater than 50% in coordination of care (as documented) at patient's floor/unit and/or counseling patient: Coding Level of Care Code 32902 SUB INP/OBS CARE 3/50MIN Diagnoses Spinal stenosis of lumbar region with neurogenic claudication M48.062 Neurogenic claudication status: with neurogenic claudication Ileus K56.7 Urinary retention R33.9 Hypertension I10 MICHELE (obstructive sleep apnea) G47.33 (1) Spinal stenosis of lumbar region Neurogenic claudication status: with neurogenic claudication Qualified Code(s): M48.062 - Spinal stenosis, lumbar region with neurogenic claudication
[2024-04-20 08:52] LABS: Ferritin 14.1 ng/ml (8-388)
[2024-04-20] MEDS: POTASSIUM CHLORIDE CRTAB 20 MEQ TABCR PO STA (09:09)
--- NOTE | 2024-04-20 09:28 | XRay Report ---
KUB CLINICAL HISTORY: f/u ileus COMPARISON STUDY: KUB April 19, 2024. FINDINGS: Postoperative findings within the spine are incidentally noted. There are skin karson. Col orectal gaseous distention persists. The amount of stool is within normal limits. Although sensitivit y is diminished on supine exam, there is no evidence for free air. IMPRESSION: Persistent colorectal gaseous distention. Given recent surgery, this favors an ileus. Co ntinued imaging follow-up is recommended. ACT 112: Negative or not required by law. Electronically signed by: Regino Márquez M.D. 04/20/2024 9:25 AM
--- NOTE | 2024-04-20 09:53 | Orthopedic Progress Note ---
Date of Service April 20, 2024 Subjective Patient seen and examined, she notes that currently while lying in bed she does not have any right leg pain, she still has some weakness in the left leg relative to hip flexion and knee extension. Less incisional pain, he does have flatus. Exam reveals her left leg to still activate with some hip flexion and knee extension and range of grade 4 out of 5 and intact motor strength in the right leg. Impression: Postoperative day 3 from surgery, some limited improvement but still with ileus though flatus is present. Plan: Will discuss with medicine, hemoglobin down to 7.8. Review of Systems All systems reviewed & are unremarkable except as noted in HPI & below. Physical Exam . Results & Data Results & Data Laboratory Results . Diagnostic Findings . PG Care Time/CCT Total # of Minutes Spent Total Time Spent with Patient: Total time spent is greater than 50% in coordination of care (as documented) at patient's floor/unit and/or counseling patient: Coding Level of Care Code 19535 Post Operative Follow-Up
[2024-04-20] MEDS: IRON SUCROSE 300 MG in SODIUM CHLORIDE 0.9% 250 ML IV SCH (11:52)
--- NOTE | 2024-04-20 14:53 | Discharge Summary ---
Date of Service April 20, 2024 Admission HPI (Per Admitting) Lumbar scoliosis/stenosis. Principal Diagnosis Same as "Discharge Diagnosis" noted below under Discharge Instructions. Discharge Exam . Discharge Data Consultations 04/17/24 15:52 Consult Hospitalist Routine Procedures Performed Operation Date: 04/17/24 07:15 Actual Procedures p L4-L5 Lateral Lumbar Interbody Fusion with Interbody Cage and Posterior Instrumentation, L3-L4, L4-L5 Posterior Laminectomy, Spinal Cord Monitoring(Not Applicable) - Ruben Platt MD Ordered Studies 04/17/24 07:00 FL lumbar spine 2-3V Routine Hospital Course (1) Disc degeneration, lumbar: (2) Lumbar radiculopathy: (3) Scoliosis of lumbar region due to degenerative disease of spine in adult: L4-5 fusion, L2-3 and L3-4 decompression. PG Care Time/CCT Total # of Minutes Spent Total Time Spent with Patient: Total time spent is greater than 50% in coordination of care (as documented) at patient's floor/unit and/or counseling patient: Discharge Plan Discharge Items Patient Disposition: Transfer Inpatient Rehab Fac Reason For Visit: Scoliosis of Lumbar Due to Degenerative Disease of Discharge Diagnosis: Lumbar scoliosis stenosis with radiculopathy Goals: You have been hospitalized for an urgent problem which required surgery. During your stay at [facility], we have made an effort to correct the problem that brought you to the hospital while keeping you as comfortable as possible. Surgery and medications were used to bring your condition under control and your discharge instructions will include directions for any medications you should take after leaving the hospital. Please make sure to follow the advice of your surgeon regarding follow up with the surgeon and with your primary care provider. Activity: As commented below Lifting: No more than 10 pounds Bathing: No limitations Exercise/Sports: Wait until after follow-up appointment Weightbearing: Full weightbearing Non-emergency contact: Surgeon Call non-emergency contact if: your pain is worsening Follow-up/Referrals: Jocelyne Jacinto CRNP [Primary Care Provider] - 05/01/24 3:00 pm Diet: Regular Addtl Attending Provider Instructions: Return to office in 2 weeks. Prescription for oxycodone on to be prescribed through the ambulatory chart, 1 pill 3 times daily as needed. Avoid nonsteroidal anti-inflammatory medications. Addtl Grinder Tender Provider Instructions: You have been provided IV iron (Venofer) while in the hospital given low iron stores. Your hemoglobin level has improved and you can resume your oral iron as long as moving your bowels regularly but can also consider having additional outpatient infusions in the future. We are recommending you have your PPI (omeprazole) increased to TWICE daily for the next month given the anemia and history of bleeding but did not appear with acute upper GI bleeding but this will be for prevention. We have STOPPED the celebrex medication as this is an NSAID and can cause bleeding same as ibuprofen/aleve/naproxen/etc. You should hold off the oral iron for the next couple of days until bowels are abck to normal and the IV iron has been provided and should work over the next couple of weeks to ensure continued improvement in blood counts but can have repeat labs in next 2-3 days at [facility] to ensure continued improvement. We are continuing macrobid for urinary coverage twice daily for urinary coverage but culture is negative but you did get IV antibiotics with surgery and could have been falsely negative and white count has normalized with use. You have one more day of treatment after tonight's dose. You are to HOLD OFF resuming your MYRBETRIQ as this can contribute to urinary retention and repeat urinary tract infections. Please follow up with primary care to discuss further medication changes as well as possible referal to urology if ongoing issues with urinary tract infections. It has been a pleasure being a part of the medical team providing for you in the hospital. Take care! Pending Studies at Discharge: No Stand-Alone Forms: My [facility] Skilled Items Patient informed of condition?: Yes DNR: No Discharge Level of Care: Acute rehab Communicable Disease: No Discharge Prognosis: Improving Lines: None Urinary Catheter: Yes Medications and DC Order Prescriptions: Continued epinephrine [EpiPen 2-Steven] 0.3 mg/0.3 mL auto-injector 0.3 mg IM Q10M PRN (Reason: anaphylaxis) Qty: 2 0RF Rx Instructions: for 2 doses hydrochlorothiazide 12.5 mg capsule 12.5 mg PO QAM Qty: 90 3RF amlodipine 10 mg tablet 10 mg PO QAM Qty: 30 0RF cyclobenzaprine 10 mg tablet 10 mg PO HS PRN (Reason: muscle spasm) Qty: 30 0RF fluticasone propionate 50 mcg/actuation spray,suspension 2 spray intranasal HS Qty: 16 0RF Rx Instructions: administer into each nostril oxycodone 5 mg tablet 5 mg PO BID PRN (Reason: pain) Qty: 30 0RF pramipexole 0.25 mg tablet 0.25 mg PO HS PRN (Reason: RLS) Qty: 30 0RF Rx Instructions: TAKE 1 TABLET BY MOUTH IN THE EVENING NEEDED FOR RESTLESS LEG(S), MAY TAKE IF SYMPTOMS NOT RELIEVED WITH PRAMIPEXOLE 0.125MG valsartan 160 mg tablet 160 mg PO QAM Qty: 30 0RF gabapentin 300 mg capsule 300 - 600 mg PO UD Qty: 90 2RF Rx Instructions: Take 300mg in am and 600mg in pm (take 600mg with 100mg for tot of 700mg in pm) gabapentin 100 mg capsule 100 mg PO HS Qty: 90 2RF Rx Instructions: Take with the two 300mg tabs at bedtime for total of 700mg oxycodone-acetaminophen 5-325 mg tablet 1 tab PO Q6H Qty: 24 0RF (DME) CPAP Supplies Misc See Rx Instructions .Route Qty: 1 0RF Rx Instructions: As directed diclofenac sodium 1 % gel 2 g topical QID PRN (Reason: arm pain) Qty: 100 2RF Rx Instructions: apply to single elbow, wrist or hand; for hand includes palm/fingers/back of hand (DME) CPAP Supplies Misc See Rx Instructions .Route Qty: 1 0RF Rx Instructions: Mask, Mask cushion, Heated humidifier, Heated chamber, Tubing, Disposable filters, Headgear if needed ascorbic acid (vitamin C) 500 mg tablet 500 mg PO BID Qty: 60 0RF ferrous sulfate 325 mg (65 mg iron) tablet 325 mg PO BID Qty: 60 0RF multivitamin Tablet 1 tab PO DAILY Qty: 30 0RF omega-3 fatty acids 1,250 mg capsule 1,250 mg PO BID Qty: 60 0RF acetaminophen [Tylenol Arthritis Pain] 650 mg tablet extended release 650 mg PO TID magnesium oxide 500 mg magnesium tablet 500 mg PO QPM amoxicillin 500 mg capsule 2,000 mg PO UD PRN (Reason: dental procedures) Rx Instructions: Prior to dental procedures Sanchez 128 2 % drops 2 drp ophthalmic (eye) BID Systane Complete PF 0.6 % drops 1 drp ophthalmic (eye) QID Rx Instructions: into the eye(s) 4 TIMES DAILY; estradiol 0.01 % (0.1 mg/gram) cream 1 g vaginal Q3D ClearLax 1 dose PO DAILY Changed omeprazole 40 mg capsule,delayed release(DR/EC) 40 mg PO BID Qty: 0 0RF Discontinued celecoxib [Celebrex] 200 mg capsule 200 mg PO QAM mirabegron [Myrbetriq] 50 mg tablet extended release 24 hr 50 mg PO QAM Discharge Orders: Discharge Order (Routine); Ordered 04/22/24 Ordered By: Magdalena Radford Admission Data Admit Date/Time: 04/17/24 15:52 Attending Provider: Ruben Platt Admit Provider: Ruben Platt Primary Care Provider: Jocelyne Jacinto Other Providers: Yemi Ahn; Pastor Flor Other Interventions: Discharge Summary Assessment (RN) Last Done: 04/22/24 10:02
[2024-04-20] MEDS: PANTOprazole 40 MG TAB PO SCH (20:13)
[2024-04-21 06:38] LABS: Hematocrit (blood only) 25.9 % (37.0-47.0); Hemoglobin 8.1 g/dl (12.0-16.0); Mean Corpuscular Hemoglobin 27.7 pg (25.0-34.0); Mean Corpuscular Hgb Conc 31.3 g/dL (32.0-36.0); Mean Corpuscular Volume 88.7 fL (80.0-100.0); Mean Platelet Volume 9.9 fL (9.4-12.4); Nucleated RBC # (auto) 0.02 K/uL (0.00-0.12); Nucleated RBC % (auto) 0.3 %; Platelet Count 219 K/uL (130-400); RDW Coefficient of Variation 14.9 % (11.5-14.5); RDW Standard Deviation 48.8 fL (36.4-46.3); Red Blood Count 2.92 M/uL (4.20-5.40); White Blood Count 7.05 K/ul (4.8-10.8)
[2024-04-21 06:52] LABS: BUN Creatinine Ratio 16.7 (10-20); Calcium 8.7 mg/dl (8.6-10.3); Creatinine Clr Calc Pharmacy 58.9 ml/min; Magnesium 2.1 mg/dl (1.7-2.4); Potassium 3.6 mmol/L (3.5-5.1)
--- NOTE | 2024-04-21 08:26 | Hospitalist Progress Note ---
Date of Service April 21, 2024 Assessment & Plan (1) Spinal stenosis of lumbar region: Plan: S/p L4-L5 Lateral Lumbar interbody fusion with cage. L3-L4, L4-L5 posterior laminectomy with Dr. Platt 04/17. EBL 200cc Pain control/dvt proh/ bowel regiment per primary team 04/18 WBC elevation likely 2nd to surgery/dexamethasone given with such. Slight temp 37.8C this morning but ?atelectasis. Incentive spirometry encouraged. Hgb 11.4-->9.6, acute blood loss anemia from surgery (EBL 200cc) as well as aspect of dilution from IVF suspected Of note, did have + urine cx on pre-op testing for ecoli and was given rx for macrobid at that time but did require straight cath x 1 AM 04/18 and will plan to repeat UA/cx but denies symptoms burning/frequency at this time. Continued Myrbetriq/hospital equivalent Passing gas but no BM, monitor for retention. No abd pain reported HCTZ/valsartan for now, PT/OT consults pending and [facility] planned eventually when medically clear 04/19 WBC normalized but hgb to 8.3. No drain in place. Had been afebrile except slight bump in temp 37.8C AM 04/18 and incentive spirometry encouraged and UA did not appear overly infected but ?if from perioperative abx and restarted macrobid given prior cx. KUB obtained given n/v, concerns for ileus. KUB c/w ileus and diet backed to full liquids, enema x 1 provided and 1L NSS provided. Price placed for ongoing urinary retention issues, urine culture sent/pending Discussed w/ ariela Rodarte for dose of Dexamethasone 4mg IV x 1 -possible some irritation to nerves on the right from sugery, did have some relocation of psoas muscle during surgery on the left and suspected weakness on that side not surprising per primary service and hopeful to improve with time. 04/20 WBC wnl, temp 38.5C last evening. Not hypoxic/no SOB, CXR negative in AM for any acute findings and no further n/v reported. KUB w/ ongoing concerns for ileus but improvement in +BS on exam and liquid bowel movement following imaging. Continue full liquid diet for now, advance as tolerated if not having issues/continued bowel movements. Continue bowel regimen, enema/suppository if needed Price removed by nursing, will need to ensure able to void but if ongoing issues with retention will place/continue at [facility] and plan for voiding trial. Urine cx o growth on preliminary but continue macrobid BID and plan for 5 day course for now. Mybetriq on HOLD, possible leading to continued UTIs outpatient Iron studies obtained and Venofer 300mg IV ordered (hx coffee ground appearance on EGD in the past), PPI increased to BID. Holding off PO iron as takes BID given constipation issues No significant hematoma/bleeding on exam and ?acute on chronic with blood loss from surgery. AVOID NSAIDs (given ibuprofen overnight by resident team for fever) Monitor hgb count in AM, per primary service wanting to avoid PRBC for now and renal function stable. Will monitor if drop in AM to consider transfusion but did note given 1L IVF overnight and suspect some drop from dilution. [facility] when bed available, none today 04/21 Hgb improved to 8.1 -will repeat Venofer IV for today. Will plan to repeat 3rd dose for AM 04/22 -Continue PPI BID for now/at discharge until seen in f/u and discussed would continue BID x 1 month then back to once daily. Avoid NSAIDs. Moving bowels, improvement in bowel sounds and nontender --> will upgrade to low fiber diet for now/monitor Urinating since price removal. Macrobid BID x 5 days unless cx returns w/ growth. Myrbetriq on hold/discussed continuing to hold WBC wnl, no further fevers. [facility] possibly tomorrow if bed available - per CM no bed available for today. (2) Ileus: Plan: suspected cause for her nausea/vomiting 04/18, however UTI not excluded and was placed on macrobid as above/urine cx final pending Prior given 1L IVF, full liquid diet. Enema and continued miralax/senna and +BMs, improvement on exam and upgrading diet to low fiber 04/21 and will continue to monitor for urinary retention issues Once resuming oral iron given hx COCNETTA will need continued on aggressive bowel regimen as takes miralax at home for such at baseline (3) Urinary retention: Plan: ongoing issues, frequent UTIs at baseline. Mybetriq on hold as above Price placed for ongoing retention issues (notable removed from PACU prior to floor arrival as well) Moving bowels, price removed and has been urinating. Plan to dc Brianna at discharge If ongoing issues w/ retention would plan to have her price replaced/continue at [facility] and plan for voiding trial. (4) Hypertension: Plan: Stable/improved Continues on amlodipine (no increased leg swelling), BP 119/65 and valsartan resumed. HCTZ remains on hold, slight dehydration on exam but much improved and will hold for now given ileus and if keeping up with PO intake can plan to resume 04/22 (5) MICHELE (obstructive sleep apnea): Plan: CPAP HS continued, home machine in room (6) Iron deficiency anemia: Plan: Hx of such, on BID supplementation at baseline. Hx as above and not given oral iron while inpatient, santiago w/ ileus as above and constipation issues Iron studies checked and LOW, Venofer 300mg provided on 04/20 with improvement in hgb and repeat dose provided for today and will given 3rd dose for tomorrow Monitor blood counts, resume oral supp at dc Plan Chronic stable medical conditions: RLS - continue Mirapex GERD - continue PPI but INCREASED TO BID ABOVE. Avoid NSAIDs given hx UGIB Family updated in room 04/21 Thank you for allowing us to participate in the care of Mrs Cota. Hospitalist service will follow along and potential dc to [facility] in AM if bed available. Daughter to be able to transport. Please call with any questions/concerns. Admission and Anticipated Discharge Date Admission Date: April 17, 2024 Supervising Physician Co-Signing Physician Notes The patient was not seen by me. The chart was reviewed. Case discussed with CHICHO Clark. Agree with assessment and plan Subjective Evaluated this morning, daughter in room. Venofer infusing, hgb improved. Pain controlled with ordered medications. Urinating still, continues on macrobid. Moving bowels, tolerating diet. No abd pain/nausea/vomiting. Plan to advance diet. Will monitor BP/consider resuming amlodipine but hold off HCTZ for now as mm improved but still slightly dry and to push oral fluids with nursing. No leg swelling on exam presently and had been using compression machine at home with stockings with improvement. Discussed amlodipine can contribute to leg swelling. She notes she sent message to her PCP on portal about stopping her mybetriq and discussed will continue to hold for now. Leg symptoms improving slowly with weakness on the left. Still having ongoing right posterior knee discomfort but pulses present/no uneven swelling compared to the other leg. Planning for dc to [facility] possibly tomorrow if bed available, but will plan for additional Venofer IV and monitor at this time. Discussed continuing PPI BID for the next month for GI proph/bleeding history and then can back to once daily in follow up with PCP. Questions/concerns addressed. Physical Exam 2 Physical Exam: General: 78 yo female sitting up in bed, appears much improved today, reporting moving her bowels, NAD, daughter in room, IV venofer infusing HEENT: head atraumatic, normocephalic, mm improved but still SLIGHTLY dry, trachea midline Resp: even/unlabored, faint bibasilar crackles (improved) but no w/c/r, on room air CV: RRR, + systolic murmur, no rub/gallop, trace b/l edema, pulses present GI: +BS throughout, decreased distension, no overt tenderness/guarding : no price, voiding spontaneously MSK/Neuro: NVI with improvement in b/l LE strength today (particularly on the left with dorsiflexion/plantar flexion), pulses present, no significant edema Posterior R knee with ice pack in place Psych: AOx3, cooperative with exam CPAP in room Results & Data Results & Data Vital Signs (Past 12 Hours) Vital Signs Temp Pulse Resp BP Pulse Ox O2 Del Method 04/21/24 07:33 37.1 C 78 18 119/65 93 Room Air 04/20/24 20:49 37.3 C 90 18 130/71 92 Room Air Laboratory Results 04/21/24 06:19 04/21/24 06:19 PG Care Time/CCT Total # of Minutes Spent Total Time Spent with Patient: Total time spent is greater than 50% in coordination of care (as documented) at patient's floor/unit and/or counseling patient: Coding Level of Care Code 44253 SUB INP/OBS CARE 3/50MIN Diagnoses Spinal stenosis of lumbar region with neurogenic claudication M48.062 Neurogenic claudication status: with neurogenic claudication Ileus K56.7 Urinary retention R33.9 Hypertension I10 MICHELE (obstructive sleep apnea) G47.33 Iron deficiency anemia D50.9 (1) Spinal stenosis of lumbar region Neurogenic claudication status: with neurogenic claudication Qualified Code(s): M48.062 - Spinal stenosis, lumbar region with neurogenic claudication
[2024-04-21] MEDS: VALSARTAN 80 MG TAB PO SCH (08:36)
[2024-04-21] MEDS: IRON SUCROSE 300 MG in SODIUM CHLORIDE 0.9% 250 ML IV ONE (08:48)
[2024-04-21 20:41] VITALS: RESP 18
[2024-04-22 07:06] VITALS: BP 119/67; TEMP 99.3; O2SAT 97
[2024-04-22 07:55] LABS: Hematocrit (blood only) 26.4 % (37.0-47.0); Hemoglobin 8.3 g/dl (12.0-16.0); Mean Corpuscular Hemoglobin 27.3 pg (25.0-34.0); Mean Corpuscular Hgb Conc 31.4 g/dL (32.0-36.0); Mean Corpuscular Volume 86.8 fL (80.0-100.0); Mean Platelet Volume 10.1 fL (9.4-12.4); Platelet Count 252 K/uL (130-400); RDW Coefficient of Variation 14.9 % (11.5-14.5); RDW Standard Deviation 47.3 fL (36.4-46.3); Red Blood Count 3.04 M/uL (4.20-5.40); White Blood Count 7.09 K/ul (4.8-10.8)
--- NOTE | 2024-04-22 08:04 | Hospitalist Progress Note ---
Date of Service April 22, 2024 Assessment & Plan (1) Spinal stenosis of lumbar region: Plan: S/p L4-L5 Lateral Lumbar interbody fusion with cage. L3-L4, L4-L5 posterior laminectomy with Dr. Platt 04/17. EBL 200cc Pain control/dvt proh/ bowel regiment per primary team 04/18 WBC elevation likely 2nd to surgery/dexamethasone given with such. Slight temp 37.8C this morning but ?atelectasis. Incentive spirometry encouraged. Hgb 11.4-->9.6, acute blood loss anemia from surgery (EBL 200cc) as well as aspect of dilution from IVF suspected Of note, did have + urine cx on pre-op testing for ecoli and was given rx for macrobid at that time but did require straight cath x 1 AM 04/18 and will plan to repeat UA/cx but denies symptoms burning/frequency at this time. Continued Myrbetriq/hospital equivalent Passing gas but no BM, monitor for retention. No abd pain reported HCTZ/valsartan for now, PT/OT consults pending and [facility] planned eventually when medically clear 04/19 WBC normalized but hgb to 8.3. No drain in place. Had been afebrile except slight bump in temp 37.8C AM 04/18 and incentive spirometry encouraged and UA did not appear overly infected but ?if from perioperative abx and restarted macrobid given prior cx. KUB obtained given n/v, concerns for ileus. KUB c/w ileus and diet backed to full liquids, enema x 1 provided and 1L NSS provided. Price placed for ongoing urinary retention issues, urine culture sent/pending Discussed w/ ariela Rodarte for dose of Dexamethasone 4mg IV x 1 -possible some irritation to nerves on the right from sugery, did have some relocation of psoas muscle during surgery on the left and suspected weakness on that side not surprising per primary service and hopeful to improve with time. 04/20 WBC wnl, temp 38.5C last evening. Not hypoxic/no SOB, CXR negative in AM for any acute findings and no further n/v reported. KUB w/ ongoing concerns for ileus but improvement in +BS on exam and liquid bowel movement following imaging. Continue full liquid diet for now, advance as tolerated if not having issues/continued bowel movements. Continue bowel regimen, enema/suppository if needed Price removed by nursing, will need to ensure able to void but if ongoing issues with retention will place/continue at [facility] and plan for voiding trial. Urine cx o growth on preliminary but continue macrobid BID and plan for 5 day course for now. Mybetriq on HOLD, possible leading to continued UTIs outpatient Iron studies obtained and Venofer 300mg IV ordered (hx coffee ground appearance on EGD in the past), PPI increased to BID. Holding off PO iron as takes BID given constipation issues No significant hematoma/bleeding on exam and ?acute on chronic with blood loss from surgery. AVOID NSAIDs (given ibuprofen overnight by resident team for fever) Monitor hgb count in AM, per primary service wanting to avoid PRBC for now and renal function stable. Will monitor if drop in AM to consider transfusion but did note given 1L IVF overnight and suspect some drop from dilution. [facility] when bed available, none today 04/21 Hgb improved to 8.1 -will repeat Venofer IV for today. Will plan to repeat 3rd dose for AM 04/22 -Continue PPI BID for now/at discharge until seen in f/u and discussed would continue BID x 1 month then back to once daily. Avoid NSAIDs. Moving bowels, improvement in bowel sounds and nontender --> will upgrade to low fiber diet for now/monitor Urinating since price removal. Macrobid BID x 5 days unless cx returns w/ growth. Myrbetriq on hold/discussed continuing to hold WBC wnl, no further fevers. [facility] possibly tomorrow if bed available - per CM no bed available for today. 04/22 Hgb improving, 8.3. Venofer IV 3rd dose for today. Diet advanced. Has been voiding without dribbling and will discharge OFF mybetriq. 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 Hydration encouraged (improved on exam but ongoing issues at baseline). Macrobid for another day to complete 5 day course. +BS, moving bowels/no pain on exam Discussed to continue increased PPI BID at dc at least 1 month then once daily and would AVOID NSAIDs. No celebrex/was discontinued. Hold off her oral iron for couple days given IV venofer and rec repeat lab testing to ensure continued improvement at [facility] and can resume once daily to keep stores replete. [facility] with bed today, CM arranging for transport. (2) Ileus: Plan: suspected cause for her nausea/vomiting 04/18, however UTI not excluded and was placed on macrobid as above/urine cx final pending Prior given 1L IVF, full liquid diet. Enema and continued miralax/senna and +BMs, improvement on exam and upgrading diet to low fiber 04/21 and moving bowels/good bowel sounds and no further urinary retention at present Once resuming oral iron given hx CONCETTA will need continued on aggressive bowel regimen as takes miralax at home for such at baseline (3) Urinary retention: Plan: ongoing issues at baseline with frequency/urgency/retention., frequent UTIs at baseline. 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 eventual removal/repeat urine cx neg but as noted did get ancef and suspect likely had ongoing issue resumed macrobid given prior cx pansensitive and continued such given no upper tract sx WBC normalized/no further fevers since treatment STOPPED Myrbetriq at discharge to prevent retention contributing to repeat infxns (4) Hypertension: Plan: Stable/improved Continued on amlodipine (no increased leg swelling), valsartan resumed but HCTZ had been on hold and does have improvement in hydration on exam and renal functi on stable and can be resumed at [facility] for rehab but can monitor for reduction if needed if not keeping up with PO intake. (5) MICHELE (obstructive sleep apnea): Plan: CPAP HS continued, home machine in room (6) Iron deficiency anemia: Plan: Hx of such, on BID supplementation at baseline. Hx as above and not given oral iron while inpatient, santiago w/ ileus as above and constipation issues Iron studies checked and LOW, Venofer 300mg provided x3 doses as above Hgb improving w/ Venofer Outpt f/u and rec repeating labs at [facility] to ensure continued improvement did not appear w/ any significant bleeding on exam but if any symptoms/drops would consider CT imaging for further eval Plan Chronic stable medical conditions: RLS - continue Mirapex GERD - continue PPI but INCREASED TO BID ABOVE and rec'd to continue BID at discharge and Avoid NSAIDs given hx Family updated in room 04/22 Thank you for allowing us to participate in the care of Mrs Cota. Planning for discharge to [facility] today when transportation arranged by case management. Admission and Anticipated Discharge Date Admission Date: April 17, 2024 Supervising Physician Co-Signing Physician Notes The patient was not seen by me. The chart was reviewed. Case discussed with CHICHO Clark. Agree with assessment and plan Subjective Evaluated this morning, family in room. Patient ambulating with walker back to bed. Improvement in strength to her left leg today and pain tolerable. Tolerating advancement of diet, bowel sounds active/no pain. Discussed increased PPI BID, Venofer IV. Macrobid x another day past today. 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 Can hold off PO iron for next 2-3days until bowels back to usual. Strongly encouraged bowel regimen as well as adequate hydration. [facility] able to take today, CM arranging for transportation. Questions/concerns addressed at this time. Physical Exam Physical Exam: General: 78 yo female ambulating back from bathroom with walker, appears much improved today. family in room Head atraumatic, mm maybe SLIGHTLY dry but much improved, trachea midline Resp: even/unlabored, no wheezing, on room air CV: RRR, faint systolic murmur, no significant LE edema/calf tenderness GI: +BS throughout, soft/nontender no price, voiding spontaneously MSK/Neuro: LE strength improving, continued improvement with dorsiflexion/p lantar flexion, pulses present, NVI still some ongoing posterior knee pain on the right but pulses present/no calf tenderness Psych: AOx3, cooperative with exam Results & Data Results & Data Vital Signs (Past 12 Hours) Vital Signs Temp Pulse Resp BP Pulse Ox O2 Del Method 04/22/24 07:04 37.4 C 80 18 119/67 97 Room Air PG Care Time/CCT Total # of Minutes Spent Total Time Spent with Patient: Total time spent is greater than 50% in coordination of care (as documented) at patient's floor/unit and/or counseling patient: Coding Level of Care Code 88999 SUB INP/OBS CARE 3/50MIN Diagnoses Spinal stenosis of lumbar region with neurogenic claudication M48.062 Neurogenic claudication status: with neurogenic claudication Ileus K56.7 Urinary retention R33.9 Hypertension I10 MICHELE (obstructive sleep apnea) G47.33 Iron deficiency anemia D50.9 (1) Spinal stenosis of lumbar region Neurogenic claudication status: with neurogenic claudication Qualified Code(s): M48.062 - Spinal stenosis, lumbar region with neurogenic claudication
[2024-04-22 08:09] LABS: BUN Creatinine Ratio 17.5 (10-20); Calcium 8.9 mg/dl (8.6-10.3); Creatinine Clr Calc Pharmacy 61.8 ml/min; Potassium 3.9 mmol/L (3.5-5.1)
[2024-04-22] MEDS: IRON SUCROSE 300 MG in SODIUM CHLORIDE 0.9% 250 ML IV ONE (09:22)
[2024-04-22 10:03] VITALS: PULSE 78
--- NOTE | 2024-05-10 14:35 | Coding Query ---
Your help is needed for correct coding of this account; please clarify if the patients Post-operative Ileus was: (X ) expected out of the surgery ( ) unexpected complication from the surgery ( )other please specify Thank you Lali SHAHID
== END 2024-04-22 14:28 | DRG 457 ==
LOC: ASU 05:25 → 3E 15:52